=== PATIENT | female | born 1960 | race Asian ===

== ENCOUNTER → 2017-11-10 | Outpatient (CLI) | payer OTHER ==
--- NOTE | 2017-11-11 15:07 | MAMMOGRAPHY REPORT ---
BILATERAL DIGITAL SCREENING MAMMOGRAM TOMOSYNTHESIS WITH CAD: 11/10/2017 CLINICAL HISTORY: Routine screening. TECHNIQUE: The study was acquired using full field digital technology and interpreted from soft copy. Breast tomosynthesis in addition to standard 2D mammography was performed. Current study was also ev aluated with a Computer Aided Detection (CAD) system. COMPARISON: Comparison is made to exams dated: 08/14/2015 mammogram, 09/01/2012 mammogram, 09/24/2010 ma mmogram - [facility], 10/30/2008, 02/09/2001 mammogram, and 10/07/2005 mammogram. BREAST COMPOSITION: The tissue of both breasts is heterogeneously dense, which may obscure small mass es. FINDINGS: There are stable asymmetries in each superior breast on the MLO views. No new suspicious ma ss, architectural distortion or cluster of microcalcifications is seen. IMPRESSION: ACR BI-RADS CATEGORY 1: NEGATIVE There is no mammographic evidence of malignancy. A 1 year screening mammogram is recommended.( [id number]) The patient will receive written notification of the results. Some breast cancers are not detected with mammography. A negative mammographic report should not elena y biopsy if a clinically suggestive mass is present. Alicia Koch M.D. ay/:11/10/2017 14:56:32 Warehouse Distribution Manager: RT Erik(Jewels)(M), [facility] letter sent: Normal 1/2 BI-RADS Code: ACR BI-RADS Category 1: Negative
== END | disposition home or self-care (01) ==
LOC: C.MAMM 13:19
PROVIDERS: ATTEND Neuromusculoskeletal Medicine & OMM
DX: Z12.31 Encounter for screening mammogram for malignant neoplasm of breast (principal)